=== PATIENT | female | born 1990 | race African-American/Black ===

== ENCOUNTER 2023-12-02 02:34 | Emergency (ER) | payer BC, MEDICAID ==
[~2023-12-02] VITALS: Ht 162.6 cm; Wt 86.4 kg
[2023-12-02 02:37] VITALS: BP 102/67; O2SAT 99
[2023-12-02 02:38] VITALS: O2SAT 98
[2023-12-02] MEDS: PREDNISONE 20MG TABLET PO ONE (04:10)
[2023-12-02 05:10] VITALS: PULSE 84; RESP 16
[2023-12-02] MEDS: ALBUTEROL (0.083%) 2.5MG/3ML NEB HHN ONE (05:32)
[2023-12-02] MEDS: IPRATROPIUM BROMIDE (0.02%) 0.5MG/2.5ML NEB HHN ONE (05:32)
== END 2023-12-02 06:40 | disposition left against medical advice (07) ==
LOC: ER 02:34
DX: J45.901 Unspecified asthma with (acute) exacerbation (principal); Z98.890 Other specified postprocedural states; Z91.012 Allergy to eggs; Z91.018 Allergy to other foods
CPT/HCPCS: 94640; 93005; 99283; J7512; Z7610